=== PATIENT | male | born 1975 | race African-American/Black ===

== ENCOUNTER 2016-12-26 12:12 | Emergency (ER) | payer SELFPAY ==
[~2016-12-26] VITALS: Ht 170.2 cm; Wt 68.0 kg
[~2016-12-26 12:12] MED LIST: NORC7.5T PO
[2016-12-26 12:13] VITALS: BP 131/68; PULSE 102; PULSE 18; RESP 16; TEMP 97.9; O2SAT 98
[2016-12-26] MEDS ORDERED: IBUP800T23 PO (16:21)
[2016-12-26] MEDS ORDERED: AUGM500T7 PO (16:21)
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
[2016-12-26] MEDS ORDERED: IBUPROFEN 800 MG TAB PO ONE (16:30)
[2016-12-26] MEDS ORDERED: LIDOCAINE HCL 1% 50 ML VIAL INFIL ONE (16:30)
[2016-12-26] MEDS ORDERED: TETANUS/DIPHTHERIA TOXOID ADULT 0.5 ML VIAL IM ONE (16:30)
--- NOTE | 2016-12-26 17:13 | PD ---
Physical Exam Date Seen by Provider: Dec 26, 2016 Time Seen by Provider: 17:11 Narrative I was asked by KATHY Hart, to repair laceration to the patient's lower lip. Please see her documentation for full history and physical. Data Data Last Documented VS Vital Signs Date Time Temp Pulse Resp B/P Pulse Ox O2 Delivery O2 Flow Rate FiO2 12/26/16 12:13 97.9 102 16 131/68 98 Orders Ibuprofen (Motrin) (12/26/16 16:30) Tetanus/Diphtheria Tox Adult (Tetanus/Di (12/26/16 16:30) Lidocaine 1% Inj (50 Ml) (Xylocaine 1% I (12/26/16 16:30) MDM Medical Record Reviewed: Yes Supervised Visit with JERICA: No Procedures Procedure Narrative LACERATION LOCATION: Lower lip LENGTH: 3 cm NUMBER OF STITCHES/CAMRYN: 7 simple interrupted sutures REPAIR: The area of the laceration was prepped with Betadine and sterilely draped. The laceration was infiltrated with 1% lidocaine. The wound was copiously irrigated and explored without evidence of foreign body, tendon injury or neurovascular injury. The wound was closed using 5-0 Vicryl. This was a single layer repair. A sterile dressing was applied. The patient was advised to keep the dressing clean and dry. Patient tolerated the procedure well. Diagnosis Primary Impression: Lip laceration Qualified Code: S01.511A - Lip laceration, initial encounter Referrals: Primary Care Physician Patient Instructions: General Instructions, Laceration (ED), Care For Your Absorbable Stitches (ED) Departure Forms: Work Release, Enter return to work date: Tests/Procedures Additional Instruction: Keep area clean and dry Ibuprofen or Tylenol as directed and as needed for pain and inflammation Ice pack to area as needed to decrease pain Return to the emergency department in 7 days for suture removal Follow up with primary care provider Return to the emergency department immediately with worsening of symptoms Scripts Ibuprofen 800 Mg [id number] Mg PO Q6HR PRN (PAIN) #30 TAB Ref 0 Prov:Hailey Coker 12/26/16 Amoxicillin-Clavulanate (Augmentin)500-125 mg [id number] Mg PO BID 7 Days Ref 0 Prov:Hailey Coker 12/26/16 Disposition: 01 DISCHARGE HOME Condition: Stable Maggy Aranda Dec 26, 2016 17:13
== END 2016-12-26 17:49 | disposition home or self-care (01) ==
LOC: NETRI 12:12
DX: S01.511A Laceration without foreign body of lip, initial encounter (principal); F12.90 Cannabis use, unspecified, uncomplicated; Y09 Assault by unspecified means; Z72.0 Tobacco use; Z23 Encounter for immunization
CPT/HCPCS: 12013; 90471; 90714

== ENCOUNTER 2017-09-28 11:43 | Emergency (ER) | payer SELFPAY ==
[~2017-09-28] VITALS: Ht 170.2 cm; Wt 68.0 kg
[~2017-09-28 11:43] MED LIST changes: +AUGM500T7 PO; +IBUP1TAB7 PO; -NORC7.5T PO
[2017-09-28 11:47] VITALS: BP 132/84; PULSE 86; RESP 12; TEMP 98.4; O2SAT 99
[2017-09-28] MEDS ORDERED: LIDOCAINE HCL 1% 50 ML VIAL INFIL ONE (12:45)
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
== END 2017-09-28 14:20 | disposition home or self-care (01) ==
LOC: NEPD 11:43
DX: S61.512A Laceration without foreign body of left wrist, initial encounter (principal); R51 Headache; Y09 Assault by unspecified means
CPT/HCPCS: 12002; 70140

== ENCOUNTER 2017-10-10 15:46 | Emergency (ER) | payer SELFPAY ==
[~2017-10-10] VITALS: Ht 170.2 cm; Wt 68.0 kg
[2017-10-10 15:48] VITALS: BP 133/85; PULSE 86; RESP 18; TEMP 98.8; O2SAT 97
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
== END 2017-10-10 18:55 | disposition home or self-care (01) ==
LOC: NED 15:46
DX: S61.512D Laceration without foreign body of left wrist, subsequent encounter (principal); Y09 Assault by unspecified means; Z48.02 Encounter for removal of sutures
CPT/HCPCS: 99281

== ENCOUNTER 2018-01-01 15:54 | Emergency (ER) | payer SELFPAY ==
[~2018-01-01] VITALS: Ht 170.2 cm; Wt 66.0 kg
[2018-01-01 16:15] VITALS: PULSE 88; RESP 18; TEMP 98.7; O2SAT 99
[2018-01-01 18:42] VITALS: BP 106/60
[2018-01-01] MEDS ORDERED: PROPARACAINE HCL 0.5% OPHT SOLN 15 ML BTL RIGHT EYE ONE (18:45)
[2018-01-01] MEDS ORDERED: POLY10O RIGHT EYE (19:04)
--- NOTE | 2018-01-01 19:04 | PD ---
HPI Chief Complaint: Eye Problems/Injury Time Seen by Provider: 18:37 Travel History International Travel<30 days: No Contact w/Intl Traveler<30days: No Traveled to known affect area: No History of Present Illness HPI 42-year-old male presents to emergency department with complaint of right eye irritation since yesterday. Says he thinks he got dirt in his eye and then he rubbed it. Reports his eye feels itchy and he has been rubbing it to scratch it. Says it kind of feels gritty in his eye. Reports that it is also painful. Reports blurred vision. Reports clear drainage. Denies fever, vomiting. Reports photophobia. 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 Has not taken any medication or try any treatments to alleviate his symptoms. Symptoms are mild to moderate in severity. No known aggravating or relieving factors. No known allergies. No primary care provider. Denies significant past medical history. Has no other medical complaints. No other modifying factors or associated signs and symptoms. PFSH Past Medical History Cerebrovascular Accident: No Diabetes: No Myocardial Infarction: No Tetanus Vaccination: < 5 Years ?: Not Past Surgical History Other Surgery: Yes (hand surgery) Social History Alcohol Use: Yes (occ) Tobacco Use: Yes Substance Use: Yes (MARAJUAMA ) Allergies-Medications (Allergen,Severity, Reaction): Coded Allergies: No Known Allergies (Verified Adverse Reaction, Unknown, 01/01/18) Reported Meds & Prescriptions Reported Meds & Active Scripts Active Ibuprofen 800 Mg Tab 800 Mg PO Q6HR PRN Polytrim Opth Drops (Polymyxin/Trimethoprim Sulfate) 10,000-0.1 Unit/Ml-% Soln 1 Drop RIGHT EYE Q6HR 7 Days Review of Systems Except as stated in HPI: all other systems reviewed are Neg Physical Exam Narrative GENERAL: Well-nourished, well-developed black male patient, in no acute distress SKIN: Warm and dry. HEAD: Atraumatic. Normocephalic. EYES: Pupils equal and round at 3 mm with brisk reaction. PERRLA. EOMI. right lid eversion with no foreign body noted. Right eye with scleral erythema and without lid edema. No orbital tenderness, erythema or cellulitis. Right eye with photophobia. No consensual photophobia. No scleral icterus. Clear drainage. Perry lamp exam normal. Victorino pen pressure reading average 9. ENT: Mucosa pink and moist. Airway patent. NECK: Trachea midline. CARDIOVASCULAR: Regular rate. RESPIRATORY: No accessory muscle use. GASTROINTESTINAL: Flat. NEUROLOGICAL: Awake and alert. Oriented 3. No obvious cranial nerve deficits. Motor grossly within normal limits. Normal speech. PSYCHIATRIC: Appropriate mood and affect; insight and judgment normal. Data Data Last Documented VS Vital Signs Date Time Temp Pulse Resp B/P (MAP) Pulse Ox O2 Delivery O2 Flow Rate FiO2 01/01/18 19:07 01/01/18 16:15 98.7 88 18 99 Orders Orders Proparacaine 0.5% Opth Soln (Alcaine 0.5 (01/01/18 18:45) Ed Discharge Order (01/01/18 19:04) Mandatory Outpatient Referral (01/01/18 19:04) [facility] Medical Decision Making Medical Screen Exam Complete: Yes Emergency Medical Condition: Yes Medical Record Reviewed: Yes Differential Diagnosis Allergic conjunctivitis, bacterial conjunctivitis, foreign body, corneal abrasion, eye pain, eye irritation Narrative Course 42-year-old male with eye irritation of the right eye. Reports the eye is itchy and sometimes painful. Reports blurred vision. Eye exam is unremarkable. He reports clear drainage. I am suspecting allergic conjunctivitis secondary to normal eye examination, itchiness, and clear drainage. I ordered an outpatient mandatory referral to ophthalmology for complete eye exam. Polytrim eyedrops and ibuprofen prescribed for home. Instructed patient to call and make an appointment tomorrow. I provided him with information because he does not have a phone and is unable to be contacted to have an appointment made for him. Instructed patient to follow up with primary care provider. Patient verbalizes understanding and agreement with treatment plan. Patient is medically cleared and stable for discharge. Discussed reasons to return to the emergency department. Patient agrees with treatment plan. The patients vital signs are stable and the patient is stable for outpatient follow-up and treatment. Patient discharged home, stable and in no acute distress. Diagnosis Primary Impression: Irritation of right eye Referrals: Alisha Willson MD [facility] [employer] Pouncer Primary Care Physician Patient Instructions: Conjunctivitis (ED), Eye Pain (ED), General Instructions Departure Forms: Tests/Procedures, Work Release Enter return to work date: Jan 03, 2018 Additional Instructions: Polytrim eyedrops as prescribed Follow-up with cartridge assembler; call tomorrow and make an appointment with Dr. Arun Willson; a mandatory referral has been ordered for you to follow-up; her contact information is provided in your discharge instructions Follow-up with primary care provider Return to the emergency department immediately with worsening of symptoms Med/Other Pt SpecificInfo: Prescription(s) given Scripts Ibuprofen (Ibuprofen) 800 Mg Tab 800 MG PO Q6HR Y for PAIN, #30 TAB 0 Refills Prov: Hailey Coker 01/01/18 Polymyxin B-Trimethoprim Opth Drops (Polytrim Opth Drops) 10,000-0.1 Unit/Ml-% Soln 1 DROP RIGHT EYE Q6HR for Mgmt Bacterial Infection for 7 Days, #1 BOTTLE 0 Refills Prov: Hailey Coker 01/01/18 Disposition: 01 DISCHARGE HOME Condition: Stable Hailey Coker Jan 01, 2018 19:04
[2018-01-01] MEDS ORDERED: IBUP1TAB7 PO (19:07)
== END 2018-01-01 19:14 | disposition home or self-care (01) ==
LOC: NEPK 15:54
DX: H57.11 Ocular pain, right eye (principal); H53.8 Other visual disturbances; H54.40 Blindness, one eye, unspecified eye; Z72.0 Tobacco use
CPT/HCPCS: 99283

== ENCOUNTER 2018-07-28 14:00 | Inpatient (IN) ==
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
[2018-07-28 17:32] LABS: Troponin I 0.08 ng/mL (0.02-0.05)
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
[2018-07-28 17:46] LABS: CKMB Percent 0.5 % (0.0-4.0); Creatine Kinase MB 3.8 ng/mL (0.5-3.6)
[2018-07-28] MEDS ORDERED: Morphine Inj 4 MG/ML Vial IV.PUSH ONE (18:49)
[2018-07-28 18:54] LABS: Baso # (Auto) 0.1 th/mm3 (0.0-0.2); Eos # (Auto) 0.1 th/mm3 (0.0-0.4); Eos % (Auto) 0.8 % (0.0-4.0); Hematocrit 40.3 % (39.0-51.0); Hemoglobin 13.2 gm/dL (13.0-17.0); Lymph # (Auto) 2.1 th/mm3 (1.0-4.8); Lymph % (Auto) 18.5 % (9.0-44.0); Mean Corpuscular HGB Conc 32.6 % (32.0-36.0); Mean Corpuscular Hemoglobin 31.2 pg (27.0-34.0); Mean Corpuscular Volume 95.5 fL (80.0-100.0); Mean Platelet Volume 8.5 fL (7.0-11.0); Mono # (Auto) 0.6 th/mm3 (0.0-0.9); Mono % (Auto) 5.3 % (0.0-8.0); Neut # (Auto) 8.4 th/mm3 (1.8-7.7); Neut % (Auto) 74.4 % (16.0-70.0); Platelet Count 245 th/mm3 (150-450); Red Blood Count 4.22 mil/mm3 (4.50-5.90); Red Cell Distribution Width 14.1 % (11.6-17.2); White Blood Count 11.3 th/mm3 (4.0-11.0)
[2018-07-28 19:05] LABS: Activated Partial Thrombo Time 22.9 sec (24.3-30.1); Prothrombin Time 10.1 sec (9.8-11.6)
[2018-07-28 19:19] LABS: Anion Gap 9 meq/L (5-15); Blood Urea Nitrogen 9 mg/dL (7-18); Calcium 8.3 mg/dL (8.5-10.1); Carbon Dioxide 23.6 meq/L (21.0-32.0); Chloride 101 meq/L (98-107); Glomerular Filtration Rate Greater Than 89 mL/min (>89); Glucose,Random 64 mg/dL (74-106); Sodium 134 meq/L (136-145)
[2018-07-28 19:22] LABS: Potassium 5.4 meq/L (3.5-5.1)
--- NOTE | 2018-07-28 19:30 | ECG ---
Date Performed: 07/28/2018 Time Performed: 14:48:22 PTAGE: 42 years EKG: Sinus rhythm MINIMAL VOLTAGE CRITERIA FOR LVH, CONSIDER NORMAL VARIANT BORDERLINE ECG Compared to prior electroca rdiogram nonspecific T-wave changes have resolved. DOCTOR: Betito Scott Interpretating Date/Time 07/28/2018 19:30:21
[2018-07-28] MEDS ORDERED: Bisacodyl 10 MG Supp RECTAL PRN (20:47)
[2018-07-28] MEDS ORDERED: Acetaminophen 325 MG Tablet PO PRN (20:47)
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
[2018-07-28] MEDS: Senna/Docusate Sodium 8.6/50 MG Tablet PO SCH (21:26)
[2018-07-28] MEDS: Sod Chloride 0.9% Inj 1,000 ML IV.CONT SCH (21:26)
[2018-07-28 22:50] LABS: Troponin I 0.03 ng/mL (0.02-0.05)
[2018-07-28 23:02] LABS: CKMB Percent 0.4 % (0.0-4.0); Creatine Kinase MB 2.6 ng/mL (0.5-3.6)
[2018-07-29] MEDS: Morphine Sulfate Inj 2 MG/ML Vial IV.PUSH PRN ×2 (00:06→22:34)
[2018-07-29 06:29] LABS: Anion Gap 7 meq/L (5-15); Blood Urea Nitrogen 8 mg/dL (7-18); Calcium 8.3 mg/dL (8.5-10.1); Carbon Dioxide 25.8 meq/L (21.0-32.0); Chloride 104 meq/L (98-107); Creatine Kinase 538 U/L (39-308); Glomerular Filtration Rate Greater Than 89 mL/min (>89); Glucose,Random 75 mg/dL (74-106); Potassium 3.8 meq/L (3.5-5.1); Sodium 137 meq/L (136-145)
[2018-07-29 06:46] LABS: Baso % (Auto) 0.5 % (0.0-2.0); Eos # (Auto) 0.2 th/mm3 (0.0-0.4); Eos % (Auto) 1.9 % (0.0-4.0); Hematocrit 40.3 % (39.0-51.0); Hemoglobin 13.1 gm/dL (13.0-17.0); Lymph # (Auto) 2.3 th/mm3 (1.0-4.8); Lymph % (Auto) 24.4 % (9.0-44.0); Mean Corpuscular HGB Conc 32.5 % (32.0-36.0); Mean Corpuscular Hemoglobin 31.1 pg (27.0-34.0); Mean Corpuscular Volume 95.7 fL (80.0-100.0); Mean Platelet Volume 8.5 fL (7.0-11.0); Mono # (Auto) 0.6 th/mm3 (0.0-0.9); Mono % (Auto) 6.7 % (0.0-8.0); Neut # (Auto) 6.1 th/mm3 (1.8-7.7); Neut % (Auto) 66.5 % (16.0-70.0); Platelet Count 233 th/mm3 (150-450); Red Blood Count 4.21 mil/mm3 (4.50-5.90); Red Cell Distribution Width 13.9 % (11.6-17.2); White Blood Count 9.2 th/mm3 (4.0-11.0)
[2018-07-29 06:51] LABS: CKMB Percent 0.3 % (0.0-4.0); Creatine Kinase MB 1.7 ng/mL (0.5-3.6)
[2018-07-29] MEDS: Sod Chloride 0.9% Inj 1,000 ML IV.CONT SCH ×2 (07:10→19:15)
--- NOTE | 2018-07-29 09:52 | ECG ---
Date Performed: 07/29/2018 Time Performed: 03:47:23 PTAGE: 42 years EKG: SINUS BRADYCARDIA WITH SINUS ARRHYTHMIA BORDERLINE ECG No significant change from prior nikole ctrocardiogram. PREVIOUS TRACING : 07/28/2018 22.04 DOCTOR: Betito Scott Interpretating Date/Time 07/29/2018 09:51:10
--- NOTE | 2018-07-29 09:58 | ECG ---
Date Performed: 07/28/2018 Time Performed: 22:04:06 PTAGE: 42 years EKG: Sinus rhythm NORMAL ECG No significant change from prior electrocardiogram. PREVIOUS TRACING : 07/28/2018 14.48 DOCTOR: Betito Scott Interpretating Date/Time 07/29/2018 09:56:31
[2018-07-29] MEDS: Senna/Docusate Sodium 8.6/50 MG Tablet PO SCH ×2 (12:14→20:26)
--- NOTE | 2018-07-29 14:00 | ECHRPT ---
Indication: CHEST PAIN CONCLUSIONS The left ventricular systolic function is normal with an estimated ejection fraction in the range of 55-60%. Left ventricular diastolic function parameters are normal. Trace mitral valve regurgitation. There is trace tricuspid valve regurgitation. BP: / HR: Rhythm: Other MEASUREMENTS (Male / Female) Normal Values Technical Quality:Fair 2D ECHO LV Diastolic Diameter PLAX 4.1 cm 4.2 - 5.9 / 3.9 - 5.3 cm LV Systolic Diameter PLAX 2.9 cm IVS Diastolic Thickness 0.9 cm 0.6 - 1.0 / 0.6 - 0.9 cm LVPW Diastolic Thickness 0.9 cm 0.6 - 1.0 / 0.6 - 0.9 cm LV Relative Wall Thickness 0.4 RV Internal Dim ED PLAX 2.6 cm LVOT Diameter 2.0 cm Aortic Root Diameter 3.0 cm LA Systolic Diameter LX 2.6 cm 3.0 - 4.0 / 2.7 - 3.8 cm M-MODE AV Cusp Separation MM 1.9 cm DOPPLER AV Peak Velocity 114.0 cm/s AV Peak Gradient 5.2 mmHg LVOT Peak Velocity 80.9 cm/s LVOT Peak Gradient 2.6 mmHg AV Area Cont Eq pk 2.2 cm Mitral E Point Velocity 66.1 cm/s Mitral A Point Velocity 52.3 cm/s Mitral E to A Ratio 1.3 LV E' Lateral Velocity 16.2 cm/s Mitral E to LV E' Lateral Ratio 4.1 LV E' Septal Velocity 9.4 cm/s Mitral E to LV E' Septal Ratio 7.1 TR Peak Velocity 193.0 cm/s TR Peak Gradient 14.9 mmHg Right Atrial Pressure 10.0 mmHg Pulmonary Artery Systolic Pressu 24.9 mmHg Right Ventricular Systolic Press 24.9 mmHg PV Peak Velocity 71.6 cm/s PV Peak Gradient 2.1 mmHg FINDINGS LEFT VENTRICLE Normal left ventricular size. Wall thickness is normal. The left ventricular systolic function is normal with an estimated ejection fraction in the range of 55-60%. No regional wall motion abnormalities are present. Left ventricular diastolic function parameters are normal. RIGHT VENTRICLE Normal right ventricular size and systolic function. LEFT ATRIUM The left atrial size is normal. RIGHT ATRIUM The right atrial size is normal. ATRIAL SEPTUM Normal atrial septal thickness AORTA The aortic root and proximal ascending aorta are normal in size on limited imaging. MITRAL VALVE Structurally normal mitral valve. Trace mitral valve regurgitation. No mitral valve stenosis. AORTIC VALVE No aortic valve regurgitation. No aortic valve stenosis. The aortic valve is not well visualized. TRICUSPID VALVE Structurally normal tricuspid valve. There is trace tricuspid valve regurgitation. No tricuspid valve stenosis. PULMONARY VALVE No pulmonary valve regurgitation or stenosis. VESSELS The inferior vena cava is normal in size. PERICARDIUM No pericardial effusion. Ghassan Jung DO (Electronically Signed) Final Date:29 July 2018 13:59
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
[2018-07-30] MEDS: Sod Chloride 0.9% Inj 1,000 ML IV.CONT SCH ×2 (06:34→07:42)
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
[2018-07-30 08:25] VITALS: BP 112/74; PULSE 54; RESP 16; TEMP 98.2; O2SAT 95
== END 2018-07-30 09:42 | disposition home or self-care (01) ==
LOC: NEPC 14:00 → NEDA 14:00 → NEPHCDU 21:36
PROVIDERS: ADMIT Hospitalist; ATTEND Hospitalist